=== PATIENT | female | born 1980 | race Caucasian/White ===

== ENCOUNTER 2020-12-01 15:44 | Emergency (ER) | payer BC ==
[2020-12-01] MEDS: Morphine 4 MG/ML Syringe IM ONE (15:58)
[2020-12-01] MEDS: Ondansetron 4 MG Tab.DIS PO ONE (15:58)
[2020-12-01] MEDS: Morphine 4 MG/ML Syringe ONE (16:21)
[2020-12-01 17:15] VITALS: PULSE 78
[2020-12-01 17:16] VITALS: BP 112/69
--- NOTE | 2020-12-01 17:17 | EDM.PDOC ---
ED HPI GENERAL MEDICAL PROBLEM - General Chief Complaint: General Stated Complaint: hemorrhoids Time Seen by Provider: 12/01/20 15:53 Source of Information: Reports: Patient History Limitations: Reports: No Limitations - History of Present Illness INITIAL COMMENTS - FREE TEXT/NARRATIVE: Patient developed sudden severe hemorrhoids overnight after having a bout of loose stools and straining yesterday. Has had hemorrhoids before but not this severe. Took Ibuprofen earlier. 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 Denies: Abdominal Pain, Nausea, Vomiting ED EXAM, GENERAL - Physical Exam Exam: See Below Exam Limited By: No Limitations General Appearance: Alert, Moderate Distress, Obese Eye Exam: Bilateral Eye: EOMI, PERRL Ears: Hearing Grossly Normal Throat/Mouth: Normal Lips, Normal Voice, No Airway Compromise Head: Atraumatic, Normocephalic Neck: Supple Respiratory/Chest: No Respiratory Distress Cardiovascular: Regular Rate, Rhythm Rectal (Female) Exam: Hemorrhoids, Tenderness Extremities: Normal Inspection, Normal Capillary Refill Neurological: Alert, Normal Cognition, No Motor/Sensory Deficits Psychiatric: Anxious Skin Exam: Warm, Dry Course - Vital Signs Last Recorded V/S: Last Vital Signs Temp 36.2 C 12/01/20 15:45 Pulse 78 12/01/20 15:45 Resp 20 12/01/20 16:45 BP 112/69 12/01/20 16:45 Pulse Ox 98 12/01/20 16:45 - Orders/Labs/Meds Meds: Medications Discontinued Medications Generic Name Dose Route Start Last Admin Trade Name Herrera PRN Reason Stop Dose Admin Lidocaine HCl 5 ml 12/01/20 16:00 12/01/20 16:21 Lidocaine 1% 5 Ml Sdv INJECT 12/01/20 16:01 5 ml ONETIME ONE Administration Morphine Sulfate 4 mg 12/01/20 15:54 12/01/20 15:58 Morphine 4 Mg/Ml Syringe IM 12/01/20 15:55 4 mg ONETIME ONE Administration Morphine Sulfate Confirm 12/01/20 16:19 12/01/20 16:21 Morphine 4 Mg/Ml Syringe Administered 12/01/20 16:20 4 mg Dose Administration 4 mg .ROUTE .STK-MED ONE Ondansetron HCl 4 mg 12/01/20 15:54 12/01/20 15:58 Ondansetron 4 Mg Tab.Dis PO 12/01/20 15:55 4 mg ONETIME ONE Administration - Re-Assessments/Exams Free Text/Narrative Re-Assessment/Exam: 12/01/20 17:24 Hemorrhoids very firm/painful to touch. IM MS given to patient along with Alenafrjohann. Call placed to /surgery. He recommended incising and removal of clotting. 1% Lidocaine injected into one of the hemorrhoids (2cc) and incision made with number 10 blade. No significant clot noted. contacted again and he felt that patient might need surgical evaluation however he was unavailable/out of town. Call then placed to [place] and patient reviewed with [facility], . He felt that most of the swelling was likely soft tissue in nature/due to induration given the history and lack of any clot found within the hemorrhoid. He recommended that pt continue sitz baths/pain control and wedge rolled up warm wet washcloths to apply counter pressure to the hemorrhoids. He also said that he would be happy to see the patient on Thursday, two days from now, if she was still having signi ficant difficulties. Work note provided to patient. She is agreeable with this plan. Sent home with bottle of Tramadol and Rx for Proctozone cream. Departure - Departure Time of Disposition: 17:08 Disposition: Home, Self-Care 01 Condition: Good Clinical Impression: Hemorrhoids Qualifiers: Hemorrhoid type: unspecified Qualified Code(s): K64.9 - Unspecified hemorrhoids - Discharge Information *PRESCRIPTION DRUG MONITORING PROGRAM REVIEWED*: Not Applicable *COPY OF PRESCRIPTION DRUG MONITORING REPORT IN PATIENT SHANIA: Not Applicable Prescriptions: Hydrocortisone [Proctozone-HC 2.5% Crm] 30 gm TOP ASDIRECTED #1 tube Instructions: Nonsurgical Procedures for Hemorrhoids Referrals: Kati Angela NP [Primary Care Provider] - Forms: ED Department Discharge, ED Return to Work/School Form Additional Instructions: Take Tramadol 1 tab every 4-6 hours for pain. You can also take Tylenol with these and/or Ibuprofen or Aleve. Continue frequent warm baths. Remember to wedge warm/wet washcloth up against the hemorrhoids per recommendation of Armin to help put pressure against them and hopefully encourage them to diminish in size. cloth bleaching supervisor hemorrhoid cream from pharmacy and apply it externally to the hemo rrhoids. Do not push when you need to have a bowel movement. Recommend taking Metamucil/stool softener daily over next few weeks to help avoid need to "push" and have large hard stools. If you are still reasonably miserable Thursday, call [facility] clinic at [place] Thursday morning. Tell them we spoke to who was [employer] consultant today. offered to see you on Thursday or Thursday if you felt you needed to be seen for this. They should be able to add you to the schedule. Follow up with your primary provider if you need any additional pain medications. Sepsis Event Note (ED) - Focused Exam Vital Signs: Vital Signs Temp Pulse Resp BP Pulse Ox 12/01/20 16:45 20 112/69 98 12/01/20 15:45 36.2 C 78 24 H 148/69 H 99
== END 2020-12-01 17:30 | disposition home or self-care (01) ==
LOC: LL.ED 15:44
DX: K64.9 Unspecified hemorrhoids (principal); E66.9 Obesity, unspecified; Z68.30 Body mass index [BMI] 30.0-30.9, adult; Z79.899 Other long term (current) drug therapy
CPT/HCPCS: 96372; 99282; A9270; J2270